=== PATIENT | male | born 1965 | race Caucasian/White ===

== ENCOUNTER 2016-12-06 11:16 | Emergency (ER) | payer BC ==
[2016-12-06] MEDS ORDERED: Aspirin 81 MG Tab.Chew PO ONE (11:23)
[2016-12-06] MEDS ORDERED: Sodium Chloride 0.9% 10 ML Syringe FLUSH PRN (11:23)
[2016-12-06] MEDS ORDERED: LORazepam 2 MG/ML MDV IVPUSH ONE (12:10)
[2016-12-06 14:48] VITALS: BP 130/72
--- NOTE | 2016-12-10 10:31 | ER ---
DATE SEEN: 12/06/2016 TIME SEEN: The patient was seen at 1155 hours. 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 He had it all night and has had it off and on for the last week. It lasts for much of the night. He denies acid peptic symptoms, nausea, vomiting, diarrhea, or ulcers or GI bleed. Denies shingles or unusual stress. Denies trauma or heavy lifting, or over exertion at work. Denies shortness of breath. Denies previous travel in the last 4 days or lying in bed for long periods of time or had recent surgery. Denies gout. Denies hypertension. FAMILY HISTORY: There is a family history of heart disease. Father at age 40 after having CABG and paternal grandmother had heart disease. One uncle had heart disease at age 60. SOCIAL HISTORY: The patient is a nonsmoker. Does not have hypertension nor does he have diabetes nor is he overweight. MEDICATIONS: None. ALLERGIES: Penicillin. REVIEW OF SYSTEMS: Otherwise, negative except for as noted above in the HPI. PHYSICAL EXAMINATION: VITAL SIGNS: 129/81, heart rate 79 and regular, respirations 18, oxygen saturation 98%, weight 92.98 kg, BMI is 27.8 kg/m2. GENERAL: Alert, pleasant youthful-looking young man, appears slightly anxious. He has very square muscular shoulders. HEENT: PERRLA intact. Pharynx without abnormality. LUNGS: Clear to auscultation without rales, rhonchi, or wheezes. HEART: S1, S2. No murmur. ABDOMEN: Soft. No tenderness. No guarding. No CVA percussion tenderness. EXTREMITIES: Without edema. Deep tendon reflexes normal in upper and lower extremities. NEURO: Cranial nerves 2 through 12 intact. Oriented x3. Gait intact. DIAGNOSTIC STUDIES: EKG: There is slight inferior downsloping of the ST- segment in lead III and that is the only abnormality noted. Borderline intraventricular conduction. Heart rate 73. Chest x-ray is negative. Troponin is negative x2, two hours apart 0.01, less than 0.01. White count 7400, PMNs 72, lymphocytes 20. Hemoglobin 16.7. PTT and INR normal. Complete metabolic panel is normal. Troponin less than 0.01 x2. ASSESSMENT AND PLAN: Nonspecific chest pain, etiology indeterminate. PLAN: If he has recurrent intermittent chest pain, may require stress testing. He is to follow up with his doctor in a week. He was given a prescription of Imdur 30 mg to take. There is an extensive history of coronary artery disease in the family. He is advised should he have more serious significant recurrent or persistent chest pain, to return to the ED immediately. /[id number]
--- NOTE | 2016-12-12 13:41 | CR ---
INDICATION: Chest pain. COMPARISON: None. CHEST, 1 VIEW: Mild perihilar, bibasilar segmental atelectasis, and/or parenchymal scarring change with minimal volume loss. No cardiomegaly, focal consolidation, large pleural effusions, interstitial edema or pneumothorax otherwise. Osseous elements otherwise are unremarkable. IMPRESSION: Mild perihilar, bibasilar segmental atelectasis, and/or parenchymal scarring change. MTDD
== END 2016-12-06 15:00 | disposition home or self-care (01) ==
LOC: FB.ED 11:16
DX: R07.9 Chest pain, unspecified (principal)
CPT/HCPCS: 36415; 71010; 80053; 84484; 85025; 85379; 85610; 85730; 93005; 96374; 99285; A9270; J2060; J7050

== ENCOUNTER 2018-05-28 00:48 | Emergency (ER) | payer BC ==
--- NOTE | 2018-05-28 01:24 | EDM.PDOC ---
ED HPI GENERAL MEDICAL PROBLEM - General Stated Complaint: NUMBNESS Time Seen by Provider: 05/28/18 01:19 Source of Information: Reports: Patient History Limitations: Reports: No Limitations - History of Present Illness INITIAL COMMENTS - FREE TEXT/NARRATIVE: Bright is a 52-year-old male complaining of numbness of the whole body. He woke up feeling numb,having palpitations and nauseous. Additionally had some shortness of breath and heartburn that he has previously had.He had similar symptoms over the weekend and was seen at the [facility] where an EKG and blood work were reportedly negative. He is previously healthy with no active medical problems - Related Data Allergies Allergy/AdvReac Type Severity Reaction Status Date / Time Penicillins Allergy Cannot Verified 05/28/18 01:35 Remember Home Meds: Home Meds NK [No Known Home Meds] 05/28/18 [History] Past Medical History HEENT History: Reports: Impaired Vision Other HEENT History: Reading glasses - Infectious Disease History Infectious Disease History: Reports: Chicken Pox Social & Family History - Family History Family Medical History: Noncontributory Cardiac: Reports: Bypass, Hypertension, [place] - Caffeine Use Caffeine Use: Reports: Soda ED ROS GENERAL - Review of Systems Review Of Systems: ROS reveals no pertinent complaints other than HPI. ED EXAM, GENERAL - Physical Exam Exam: See Below Exam Limited By: No Limitations General Appearance: Alert, WD/WN, No Apparent Distress Ears: Normal External Exam, Normal Canal, Hearing Grossly Normal, Normal TMs Ear Exam: Bilateral Ear: Auricle Normal, Canal Normal, TM normal Nose: Normal Inspection, Normal Mucosa, No Blood Throat/Mouth: Normal Inspection, Normal Lips, Normal Teeth, Normal Gums, Normal Oropharynx, Normal Voice, No Airway Compromise Head: Atraumatic, Normocephalic Neck: Normal Inspection, Supple, Non-Tender, Full Range of Motion Respiratory/Chest: No Respiratory Distress, Lungs Clear, Normal Breath Sounds, No Accessory Muscle Use, Chest Non-Tender Cardiovascular: Normal Peripheral Pulses, Regular Rate, Rhythm, No Edema, No Gallop, No JVD, No Murmur, No Rub GI/Abdominal: Normal Bowel Sounds, Soft, Non-Tender, No Organomegaly, No Distention, No Abnormal Bruit, No Mass (Male) Exam: Deferred Rectal (Males) Exam: Deferred Back Exam: Normal Inspection, Full Range of Motion, NT Extremities: Normal Inspection, Normal Range of Motion, Non-Tender, Normal Capillary Refill, No Pedal Edema Neurological: Alert, Oriented, CN II-XII Intact, Normal Cognition, Normal Gait, Normal Reflexes, No Motor/Sensory Deficits Psychiatric: Normal Affect, Normal Mood Skin Exam: Warm, Dry, Intact, Normal Color, No Rash Lymphatic: No Adenopathy Course - Vital Signs Last Recorded V/S: Last Vital Signs Temp 98.0 F 05/28/18 01:50 Pulse 67 05/28/18 01:50 Resp 13 05/28/18 01:50 BP 113/68 05/28/18 01:50 Pulse Ox 97 05/28/18 01:50 - Orders/Labs/Meds Orders: Active Orders 24 hr Category Date Time Status EKG Documentation Completion [RC] ASDIRECTED Care 05/28/18 00:55 Active EKG Documentation Completion [RC] ASDIRECTED Care 05/28/18 00:55 Active Chest 1V Frontal [CR] Stat Exams 05/28/18 00:54 Taken EKG 12 Lead [EK] Routine Ther 05/28/18 00:55 Ordered Labs: Laboratory Tests 05/28/18 05/28/18 05/28/18 Range/Units 01:05 01:05 01:05 WBC 7.1 (4.5-12.0) X10-3/uL RBC 5.05 (4.30-5.75) x10(6)uL Hgb 15.7 H (11.5-15.5) g/dL Hct 46.8 (30.0-51.3) % MCV 92.6 (80-96) fL MCH 31.0 (27.7-33.6) pg MCHC 33.5 (32.2-35.4) g/dL RDW 12.6 (11.5-15.5) % Plt Count 266 (125-369) X10(3)uL MPV 8.4 (7.4-10.4) fL Neut % (Auto) 72.4 (46-82) % Lymph % (Auto) 19.0 (13-37) % Branch % (Auto) 6.9 (4-12) % Eos % (Auto) 1 (1.0-5.0) % Baso % (Auto) 1 (0-2) % Neut # (Auto) 5.2 (1.6-8.3) # Lymph # (Auto) 1.3 (0.6-5.0) # Branch # (Auto) 0.5 (0.0-1.3) # Eos # (Auto) 0.1 (0.0-0.8) # Baso # (Auto) 0.0 (0.0-0.2) # D-Dimer, Quantitative 0.47 (0.0-0.59) mg/LFEU Sodium 140 (135-145) mmol/L Potassium 3.6 (3.5-5.3) mmol/L Chloride 104 (100-110) mmol/L Carbon Dioxide 26 (21-32) mmol/L BUN 16 (7-18) mg/dL Creatinine 1.1 (0.70-1.30) mg/dL Est Cr Clr Drug Dosing TNP Estimated GFR (MDRD) > 60 (>60) BUN/Creatinine Ratio 14.5 (9-20) Glucose 104 (80-116) mg/dL Calcium 8.9 (8.6-10.2) mg/dL Troponin I (<0.017-0.056) ng/mL 05/28/18 Range/Units 01:05 WBC (4.5-12.0) X10-3/uL RBC (4.30-5.75) x10(6)uL Hgb (11.5-15.5) g/dL Hct (30.0-51.3) % MCV (80-96) fL MCH (27.7-33.6) pg MCHC (32.2-35.4) g/dL RDW (11.5-15.5) % Plt Count (125-369) X10(3)uL MPV (7.4-10.4) fL Neut % (Auto) (46-82) % Lymph % (Auto) (13-37) % Branch % (Auto) (4-12) % Eos % (Auto) (1.0-5.0) % Baso % (Auto) (0-2) % Neut # (Auto) (1.6-8.3) # Lymph # (Auto) (0.6-5.0) # Branch # (Auto) (0.0-1.3) # Eos # (Auto) (0.0-0.8) # Baso # (Auto) (0.0-0.2) # D-Dimer, Quantitative (0.0-0.59) mg/LFEU Sodium (135-145) mmol/L Potassium (3.5-5.3) mmol/L Chloride (100-110) mmol/L Carbon Dioxide (21-32) mmol/L BUN (7-18) mg/dL Creatinine (0.70-1.30) mg/dL Est Cr Clr Drug Dosing Estimated GFR (MDRD) (>60) BUN/Creatinine Ratio (9-20) Glucose (80-116) mg/dL Calcium (8.6-10.2) mg/dL Troponin I < 0.017 L (<0.017-0.056) ng/mL Departure - Departure Time of Disposition: : Disposition: Home, Self-Care 01 Condition: Good Clinical Impression: Chest pain Qualifiers: Chest pain type: unspecified Qualified Code(s): R07.9 - Chest pain, unspecified Instructions: Near-Syncope, [id number], Nonspecific Chest Pain, [id number] Referrals: PCP,None [Primary Care Provider] - Forms: ED Department Discharge Additional Instructions: follow up with your primary care on Thursday if symptoms getting worst, you may come back to Emergency room. - Problem List & Annotations (1) Chest pain SNOMED Code(s): 60216618 Code(s): R07.9 - CHEST PAIN, UNSPECIFIED Status: Acute Qualifiers: Chest pain type: unspecified Qualified Code(s): R07.9 - Chest pain, unspecified (2) Numbness and tingling SNOMED Code(s): 361272707577 Code(s): R20.0 - ANESTHESIA OF SKIN; R20.2 - PARESTHESIA OF SKIN Status: Acute (3) Near syncope SNOMED Code(s): 849403680 Code(s): R55 - SYNCOPE AND COLLAPSE Status: Acute - Problem List Review Problem List Initiated/Reviewed/Updated: Yes - My Orders Last 24 Hours: My Active Orders 05/28/18 00:54 Chest 1V Frontal [CR] Stat 05/28/18 00:55 EKG Documentation Completion [RC] ASDIRECTED EKG Documentation Completion [RC] ASDIRECTED EKG 12 Lead [EK] Routine - Assessment/Plan Last 24 Hours: My Active Orders 05/28/18 00:54 Chest 1V Frontal [CR] Stat 05/28/18 00:55 EKG Documentation Completion [RC] ASDIRECTED EKG Documentation Completion [RC] ASDIRECTED EKG 12 Lead [EK] Routine Plan: I reviewed the chest x-ray EKG initially was negative. His troponin and d-dimer were also unremarkable symptoms are atypical, and he has normal EKGs practice for coronary disease. Oh discharge him home with proper follow-up Thursday with PCP consider stress test if symptoms persist.
[2018-05-28 02:32] VITALS: BP 113/68
--- NOTE | 2018-05-28 11:09 | CR ---
INDICATION: Feels light-headed constantly. CHEST: Portable AP upright view of the chest, 05/28/18, was compared with 12/06, again revealing the heart to be normal in size and shape. Mediastinum was essentially unremarkable, except for slight prominence at the right hilar area. This is of questionable significance and may be related to the portable AP positioning. Overlying EKG leads are noted. An active infiltrate or effusion was not identified with markings appearing slightly prominent and unchanged from the previous study. IMPRESSION: No acute process. There is suggestion of slight mediastinal prominence on the right in the area of the azygous node, and this should be correlated clinically. Depending upon clinical correlation, additional examination such as CT of the chest without and with IV contrast may be helpful. MTDD
== END 2018-05-28 01:59 | disposition home or self-care (01) ==
LOC: FB.ED 00:48
DX: R07.9 Chest pain, unspecified (principal); Z88.0 Allergy status to penicillin
CPT/HCPCS: 36415; 71045; 80048; 84484; 85025; 85379; 93005; 99285

== ENCOUNTER 2024-10-17 10:30 | Emergency (ER) | payer BC ==
[2024-10-17 10:45] VITALS: PULSE 64
[2024-10-17 11:11] LABS: BASOPHILS ABSOLUTE AUTO 0.0 x10-3/uL (0.0-0.3); BASOPHILS PERCENT AUTO 0.5 % (0.3-3.8); EOSINOPHILS ABSOLUTE AUTO 0.0 x10-3/uL (0.0-0.6); EOSINOPHILS PERCENT AUTO 0.8 % (0.1-6.8); LYMPHOCYTES ABSOLUTE AUTO 1.1 x10-3/uL (0.5-4.5); LYMPHOCYTES PERCENT AUTO 19.9 % (15.8-45.3); MEAN PLATELET VOLUME 8.2 fL (6.7-11.0); MONOCYTES ABSOLUTE AUTO 0.5 x10-3/uL (0.0-1.2); MONOCYTES PERCENT AUTO 9.3 % (5.5-15.2); NEUTROPHILS ABSOLUTE AUTO 3.9 x10-3/uL (1.7-6.9); NEUTROPHILS PERCENT AUTO 69.5 % (40.3-71.8); PLATELET COUNT,PLT 249 x10(3)uL (117-477); RED BLOOD CELL COUNT 5.14 x10(6)uL (3.90-5.90); RED CELL DISTRIBUTION WIDTH 14.0 % (12.4-15.0); WHITE BLOOD CELL COUNT,WBC 5.7 x10-3/uL (3.2-10.1)
[2024-10-17 11:12] LABS: BLOOD UREA NITROGEN,BUN 10 mg/dL (7-18); CARBON DIOXIDE,CO2 27 mmol/L (21-32); CHLORIDE,CL 105 mmol/L (100-110); CREATININE 1.0 mg/dL (0.70-1.30); EST CRCL DRUG DOSING (CG) 88.38 mL/min; ESTIMATED GFR 87 mL/min (>60); GLUCOSE RANDOM 104 mg/dL (80-116); POTASSIUM,K 3.9 mmol/L (3.5-5.3); SODIUM,NA 142 mmol/L (135-145)
[2024-10-17 11:18] LABS: A/G RATIO 1.3; ALANINE AMINOTRANSFERASE,ALT 32 U/L (12-36); ASPARTATE AMNIOTRANSFERASE,AST 18 IU/L (5-25); BILIRUBIN TOTAL 0.7 mg/dL (0.1-1.3); PROTEIN TOTAL,TP 7.2 g/dL (6.0-8.0)
[2024-10-17] MEDS: Alum Hydroxide/Mag Hydroxide 15 ML, Lidocaine 2% 15 ML PO ONE (11:31)
[2024-10-17 11:56] VITALS: BP 130/88
== END 2024-10-17 11:40 | disposition home or self-care (01) ==
LOC: FB.ED 10:30
DX: R07.89 Other chest pain (principal); Z88.0 Allergy status to penicillin
CPT/HCPCS: 36415; 80053; 84484; 85025; 93005; 99285; A9270